=== PATIENT | male | born 1945 | race Caucasian/White ===

== ENCOUNTER → 2021-03-01 14:25 | Outpatient (CLI) | payer SELFPAY ==
--- NOTE | 2021-03-01 14:33 | CT_ITS ---
INDICATION: Cervicalgia following fall from ladder on sunday EXAMINATION: CT CERVICAL SPINE - CT Spine Cervical W/O Contrast Injection TECHNIQUE: Helically acquired images were obtained of the cervical spine. 2D reformatted images were reviewed. A radiation dose optimization technique was used for this scan. IV Contrast dosage and agent: None. COMPARISON: None. FINDINGS: There is a lucency visualized traversing horizontally through the odontoid process and into the lateral masses of C2 best visualized on coronal series 601 image 20, also visualized on sagittal series 602 image 28 and axial series 2 image 46 and inferior extension into the C2 vertebral body is visualized on coronal series 601 image 21 demonstrated on axial series 2 image 52. Findings consistent with a type III odontoid fracture Minimal displacement of the fracture fragments is visualized. No evidence of fracture of the posterior column. A subtle lucency is visualized in the anterior medial aspect of the left posterior arch of C1 with corticated margins seen on axial series 2 image 38 no other lucency is visualized in the C1 vertebral body. Multilevel degenerative endplate changes visualized within the cervical spine, subtle retrolisthesis of C4 over C5 and C3 over C4 is suggested however this could be due to prominent osteophytes at these levels. Decreased intervertebral disc height visualized within the cervical spine most prominent at C4-C5 and C6-C7 and C7-T1. No evidence of compression deformity of the vertebral bodies. No evidence of fractures of the posterior column. No prevertebral soft tissue swelling. There is no cervical adenopathy. Biapical pleural reaction/pleural-based soft tissue density is visualized, no well-defined mass is seen. CT/Spine Cervical without Contras IMPRESSION: Type III odontoid fracture with no significant displacement. Findings were communicated to the patient''s physician Uday So MD and discussed with the patient at time of interpretation of the study. Electronically Signed: Prince Myrick MD at 15:48 EDT Tel , Service support ,
== END ==
PROVIDERS: PCP Physician Assistant; Referring Provider Physician Assistant; Visit Provider Physician Assistant
DX: M54.2 Cervicalgia (principal)
CPT/HCPCS: 72125